=== PATIENT | female | born 1980 | race Caucasian/White ===

== ENCOUNTER 2017-02-07 23:11 | Emergency (ER) | payer BC ==
--- NOTE | ~2017-02-07 | CR173 ---
[facility] A Service of [facility] & [facility] RADIOLOGY TEXT RESULTS PATIENT: BRIDGETT TORRES LOCATION: SED : 84 UNIT #: [id number] AGE: [address]: Hcétor Capps MD SEX: F ORDER DR: [id number] [place] [address] [id number] E MR#: [id number] Acc #: [id number] NAME: BRIDGETT TORRES : 1980 SEX: F STUDY DATE/TIME: 02/08/2017 01:36 UNIT: SED ROOM: STUDY DESCRIPTION: CR Knee 3 Views Rt Attending Physician: Héctor Capps M.D. Ordering Physician: Héctor Capps M.D. Primary Care Physician: Wesley Werner M.D. MEDICAL IMAGING REPORT This report is preliminary unless electronic signature is present. EXAM Right knee 02/08 at 01:36 INDICATIONS Knee pain after fall approximately 10 o'clock this evening. FINDINGS 3 views of the right knee were obtained. No fracture is seen. There is no joint effusion. There is minimal osteoarthritic change noted in patellofemoral and medial compartments. IMPRESSION Mild patellofemoral and medial compartment osteoarthritis. No acute findings in the knee. Dictated by... Jay Murry Jr., M.D. THIS IS AN ELECTRONICALLY VERIFIED REPORT Jay Murry Jr., M.D. at 02/09/2017 5:52 AM SARIKA/sathish TD: 02/08/2017 06:52 JOB #: [id number] MEDICAL IMAGING REPORT Page 1 of 1
--- NOTE | ~2017-02-07 | CR151 ---
[facility]. [facility] A Service of [facility] & [facility] RADIOLOGY TEXT RESULTS PATIENT: BRIDGETT TORRES LOCATION: SED : 82 UNIT #: [id number] AGE: [address]: Héctor Capps MD SEX: F ORDER DR: [id number] [place] [id number] E MR#: [id number] Acc #: [id number] NAME: BRIDGETT TORRES : 1980 SEX: F STUDY DATE/TIME: 02/08/2017 01:36 UNIT: SED ROOM: STUDY DESCRIPTION: CR Hip Min 2 Views Rt Attending Physician: Héctor Capps M.D. Ordering Physician: Héctor Capps M.D. Primary Care Physician: Wesley Werner M.D. MEDICAL IMAGING REPORT This report is preliminary unless electronic signature is present. EXAM Right and pelvis 02/08 01:36 INDICATIONS Right hip pain after fall approximately 10:00 p.m. this evening. FINDINGS AP pelvis was obtained in addition to a frog-leg right hip. Comparison is made with 05/23/2016. No acute fracture or malalignment is seen. There is no sacroiliac joint diastases. Femoral heads are normal without evidence of osteonecrosis. Heterotopic ossification projecting adjacent to the left hip is unchanged. IMPRESSION No acute fracture or malalignment. No change from prior. Dictated by... Jay Murry Jr., M.D. THIS IS AN ELECTRONICALLY VERIFIED REPORT Jay Murry Jr., M.D. at 02/09/2017 5:52 AM SARIKA/sathish TD: 02/08/2017 06:54 JOB #: [id number] MEDICAL IMAGING REPORT Page 1 of 1
--- NOTE | ~2017-02-07 | CR21 ---
[facility]. [facility] A Service of [facility] & [facility] RADIOLOGY TEXT RESULTS PATIENT: BRIDGETT TORRES LOCATION: SED : 82 UNIT #: [id number] AGE: [address]: Héctor Capps MD SEX: F ORDER DR: [id number] [place] [address] [id number] E MR#: [id number] Acc #: [id number] NAME: BRIDGETT TORRES : 1980 SEX: F STUDY DATE/TIME: 02/08/2017 01:36 UNIT: SED ROOM: STUDY DESCRIPTION: CR Ankle Min 3 Views Rt Attending Physician: Héctor Capps M.D. Ordering Physician: Héctor Capps M.D. Primary Care Physician: Wesley Werner M.D. MEDICAL IMAGING REPORT This report is preliminary unless electronic signature is present. EXAM Right ankle 02/08 at 01:36 INDICATIONS Acute onset of pain in the ankle after fall about 10:00 p.m. this evening. FINDINGS AP, lateral, and oblique projections of the ankle show satisfactory integrity of the joint mortise with a smooth articular surface. There is no identifiable fracture, dislocation, or radiopaque foreign body. IMPRESSION Normal right ankle. Dictated by... Jay Murry Jr., M.D. THIS IS AN ELECTRONICALLY VERIFIED REPORT Jay Murry Jr., M.D. at 02/09/2017 5:52 AM SARIKA/sathish TD: 02/08/2017 06:48 JOB #: [id number] MEDICAL IMAGING REPORT Page 1 of 1
[~2017-02-07 23:11] MED LIST: ALLEGRA; AUGMENTIN; CIPRO PO; FLEXERIL; FLEXERIL PO; IBUPROFEN IB100 MG; IBUPROFEN PO; KEFLEX PO; LASIX20 MG PO; LORTAB 5/500 TA1 TA2 PO; LORTAB 7.5-5001 TAB PO; NO MEDICATIONS; NORCO 5/325 TAB1 TAB PO; PERCOCET5/325 PO; PHENERGAN PO; PRILOSEC20 MG PO; SINGULAIR; TUSSIONEX PENN473 ML PO; TYLENOL #3 PO; VOLTAREN50 MG PO; YAZ 28 TABLET1 TAB PO; ZOFRAN ODT4 MG PO; [UNRECOGNIZED DRUG - REMARK]
== END 2017-02-08 02:35 | disposition home or self-care (01) ==
LOC: SED 23:11
DX: S93.401A Sprain of unspecified ligament of right ankle, initial encounter (principal); Z87.442 Personal history of urinary calculi; J45.909 Unspecified asthma, uncomplicated; X58.XXXA Exposure to other specified factors, initial encounter; Y92.009 Unspecified place in unspecified non-institutional (private) residence as the place of occurrence of the external cause
CPT/HCPCS: 29530; 73502; 73562; 73610; 84703; 99284